=== PATIENT | female | born 1980 | race Hispanic/Latino ===

== ENCOUNTER 2022-11-19 20:53 | Day surgery (SDC) | payer OTHER ==
[2022-11-19] MEDS ORDERED: hydrALAZINE 20 MG/ML VIAL SLOW IVP PRN (21:32)
[2022-11-20 01:22] VITALS: BMI 36.3
== END 2022-11-20 05:50 | disposition home or self-care (01) ==
LOC: CSHLD/OP 20:53
PROVIDERS: ATTEND Family Medicine
DX: O47.1 False labor at or after 37 completed weeks of gestation (principal); Z3A.38 38 weeks gestation of pregnancy
CPT/HCPCS: 99283